=== PATIENT | female | born 1940 | race Caucasian/White ===

== ENCOUNTER 2016-11-21 06:33 | Day surgery (SDC) | payer MEDICARE, OTHER ==
[2016-11-16 10:53] LABS: Urine RBC None Seen /hpf (0 - 4)
[2016-11-16 10:56] LABS: Basophils # (auto) 0 uL; Basophils % (auto) 0.4 % (0.0-2.0); Eosinophils # (auto) 0.2 uL; Eosinophils % (auto) 2.6 % (0.0-7.0); Hematocrit 42.3 % (36.0-46.0); Hemoglobin 14.4 g/dL (12.2-16.2); Lymphocytes # (auto) 2.6 uL; Lymphocytes % (auto) 40.4 % (10.0-50.0); Mean Corpuscular Hemoglobin 30.4 pg (28.0-32.0); Mean Corpuscular Volume 89.3 fL (80.0-100.0); Mean Platelet Volume 7.9 fL (7.4-10.4); Monocytes # (auto) 0.5 uL; Monocytes % (auto) 7.5 % (0.0-12.0); Neutrophils # (auto) 3.1 uL; Neutrophils % (auto) 49.1 % (37.0-80.0); Platelet Count (auto) 188 10^3/uL (140-450); Red Cell Distribution Width 14.4 % (11.6-16.0); White Blood Cell 6.3 10^3/uL (4.4-10.8)
[2016-11-16 11:11] LABS: INR 0.96 (0.9-1.15); Partial Thromboplastin Time 25.6 sec (22.64-33.71); Prothrombin Time 10.5 sec (9.37-12.3)
[2016-11-16 11:21] LABS: BUN/Creatinine Ratio 25.6; Bilirubin, Total 0.3 mg/dL (0.2-1.0); Calcium 9.6 mg/dL (8.5-10.1); Potassium 4.3 mmol/L (3.5-5.1); Total Protein 7.3 g/dL (6.4-8.2)
[2016-11-16 16:22] LABS: Urine Bilirubin Negative (Negative); Urine Blood Negative /uL (Negative); Urine Color Yellow (Yellow); Urine Glucose Normal (Normal); Urine Ketone Negative (Negative); Urine Nitrite Negative (Negative); Urine Squamous Epithelial Cell FEW /hpf (<5); Urine Urobilinogen Normal (Negative); Urine pH 6.5 (5.0-8.0)
[~2016-11-21] VITALS: Ht 160 cm; Wt 81.6 kg
[~2016-11-21 06:33] MED LIST: ASCO500C49 PO; BIOT300T2 PO; CHRO1000 PO; COEN100C2 PO; CYAN250L PO; GABA-339 PO; LEVO500C2 PO; LEVO75TA50 PO; MAGNTAB OR; METF-370 PO; VITA400T4 PO; [UNRECOGNIZED DRUG - CODE] PO; [UNRECOGNIZED DRUG - CODE] PO
[2016-11-21] MEDS ORDERED: ceFAZolin 1GM VL ONE (06:34)
[2016-11-21] MEDS ORDERED: BUPIVACAINE 0.75% INJ 10ML MPV SDV IJ ONE (06:34)
[2016-11-21] MEDS ORDERED: ROPIVACAINE 0.5% (5MG/ML) 20ML AMPULE IJ ONE (06:34)
[2016-11-21] MEDS ORDERED: NEOMYCIN-BACITRACIN-POLYM 15GM TOP OINT TOP ONE (06:34)
[2016-11-21] MEDS ORDERED: methylPREDNISolone ACETATE 80 MG/ML VL ONE (06:34)
[2016-11-21] MEDS ORDERED: SODIUM CHLORIDE LOCK 20 ML ONE (07:05)
[2016-11-21] MEDS ORDERED: MIDAZOLAM HCL 1MG/1ML-2 ML VIAL ONE (07:05)
[2016-11-21] MEDS ORDERED: PROPOFOL 10 MG/ML 20 ML IV ONE (07:05)
[2016-11-21] MEDS ORDERED: fentaNYL CITRATE 100 MCG/2 ML VL ONE (07:05)
[2016-11-21] MEDS ORDERED: ONDANSETRON HCL 4 MG/2 ML VIAL ONE (07:05)
[2016-11-21] MEDS ORDERED: ceFAZolin 1GM/50ML D5W 50 ML IV ONE (07:13)
[2016-11-21] MEDS ORDERED: METOCLOPRAMIDE HCL 5MG/ml INJ 2ml VIAL IV ONE (08:00)
[2016-11-21] MEDS ORDERED: KETOROLAC TROMETH 30 MG/ML 1ML VIAL IV ONE (08:00)
[2016-11-21 09:06] VITALS: BP 119/76
== END 2016-11-21 09:16 | disposition home or self-care (01) ==
LOC: SUR 06:33
PROVIDERS: ATTEND Podiatrist Foot & Ankle Surgery
DX: T84.84XA Pain due to internal orthopedic prosthetic devices, implants and grafts, initial encounter (principal); L90.5 Scar conditions and fibrosis of skin; Z88.6 Allergy status to analgesic agent; J45.909 Unspecified asthma, uncomplicated; E11.9 Type 2 diabetes mellitus without complications
CPT/HCPCS: 14040; 20680; 36415; 80053; 81001; 82962; 85025; 85610; 85730; 88300; 88304; J0690; J2250; J2405; J2704; J3490; J7030; L3260

== ENCOUNTER → 2017-07-03 | Day surgery (SDC) | payer MEDICARE, OTHER ==
[2017-07-02 12:52] LABS: Basophils # (auto) 0.1 uL; Basophils % (auto) 0.7 % (0.0-2.0); Eosinophils # (auto) 0.1 uL; Eosinophils % (auto) 1.1 % (0.0-7.0); Hematocrit 44.3 % (36.0-46.0); Hemoglobin 14.7 g/dL (12.2-16.2); Lymphocytes # (auto) 2.2 uL; Lymphocytes % (auto) 31.8 % (10.0-50.0); Mean Corpuscular Hemoglobin 29.6 pg (28.0-32.0); Mean Corpuscular Hgb Conc. 33.1 g/dL (32.0-36.0); Mean Corpuscular Volume 89.6 fL (80.0-100.0); Monocytes # (auto) 0.6 uL; Monocytes % (auto) 7.9 % (0.0-12.0); Neutrophils # (auto) 4.1 uL; Neutrophils % (auto) 58.5 % (37.0-80.0); Nucleated Red Blood Cells % 0.1 %; Platelet Count (auto) 191 10^3/uL (140-450); Red Blood Cells 4.95 10^6/uL (4.0-5.20); Red Cell Distribution Width 14.5 % (11.8-14.3); White Blood Cell 7.1 10^3/uL (4.4-10.8)
[2017-07-02 12:55] LABS: Urine Bacteria FEW /hpf (None Seen); Urine Blood Negative /uL (Negative); Urine Specific Gravity 1.023 (1.001-1.035); Urine WBC 2 /hpf (0 - 5)
[2017-07-02 13:11] LABS: INR 0.95 (0.9-1.15); Partial Thromboplastin Time 25.4 sec (22.64-33.71); Prothrombin Time 10.4 sec (9.37-12.3)
[2017-07-02 13:18] LABS: Albumin 3.8 g/dL (3.4-5.0); BUN/Creatinine Ratio 24.7; Bilirubin, Total 0.4 mg/dL (0.2-1.0); Calcium 9.6 mg/dL (8.5-10.1); Potassium 4.3 mmol/L (3.5-5.1); Total Protein 7.1 g/dL (6.4-8.2)
[~2017-07-03] VITALS: Ht 160 cm; Wt 79.4 kg
[~2017-07-03] MED LIST changes: +DEXAMETHASONE SOD PHOS 10MG/1ML VIAL INJ ONE; +KETOROLAC TROMETH 30 MG/ML 1ML VIAL IV ONE; +LABETALOL HCL 5 MG/ML 4ML SYRINGE IV PRN; +MEPERIDINE HCL (50 MG/ML) 1 ML VIAL ONE; +MIDAZOLAM HCL 1MG/1ML-2 ML VIAL IV PRN; +MIDAZOLAM HCL 1MG/1ML-2 ML VIAL ONE; +MORPHINE SULFATE 8mg/ml INJ SDV IV ONE; +MORPHINE SULFATE 8mg/ml INJ SDV IV PRN; +ONDANSETRON HCL 4 MG/2 ML VIAL IV ONE; +PROPOFOL 10 MG/ML 20 ML IV ONE; -VITA400T4 PO; +ceFAZolin 1GM/50ML 50 ML IV ONE; +ePHEDrine SULFATE 50 MG/ML AMP IV PRN; +fentaNYL CITRATE 100 MCG/2 ML VL IV ONE; +fentaNYL CITRATE 100 MCG/2 ML VL ONE; +methylPREDNISolone ACETATE 80 MG/ML VL ONE
[2017-07-03 16:28] VITALS: BP 112/69
== END ==
LOC: SUR 09:57
PROVIDERS: ATTEND Podiatrist Foot & Ankle Surgery
DX: G57.62 Lesion of plantar nerve, left lower limb (principal); Z88.5 Allergy status to narcotic agent; Z88.1 Allergy status to other antibiotic agents; Z88.2 Allergy status to sulfonamides; J45.909 Unspecified asthma, uncomplicated; E66.9 Obesity, unspecified; Z68.31 Body mass index [BMI] 31.0-31.9, adult; E11.9 Type 2 diabetes mellitus without complications; E03.9 Hypothyroidism, unspecified; K21.9 Gastro-esophageal reflux disease without esophagitis; G47.33 Obstructive sleep apnea (adult) (pediatric)
CPT/HCPCS: 36415; 64704; 80053; 81001; 82962; 85025; 85610; 85730; J0690; J1040; J1100; J2175; J2250; J2704; J3010; L3260

== ENCOUNTER 2022-01-26 20:42 | Emergency (ER) | payer MEDICARE, OTHER ==
[~2022-01-26] VITALS: Ht 162.6 cm; Wt 160.0 kg
[~2022-01-26 20:42] MED LIST changes: -BIOT300T2 PO; +BIOT300T5 PO; -COEN100C2 PO; +COEN1CAP8 PO; -DEXAMETHASONE SOD PHOS 10MG/1ML VIAL INJ ONE; -KETOROLAC TROMETH 30 MG/ML 1ML VIAL IV ONE; -LABETALOL HCL 5 MG/ML 4ML SYRINGE IV PRN; +LEV75T PO; -LEVO75TA50 PO; -MEPERIDINE HCL (50 MG/ML) 1 ML VIAL ONE; -MIDAZOLAM HCL 1MG/1ML-2 ML VIAL IV PRN; -MIDAZOLAM HCL 1MG/1ML-2 ML VIAL ONE; -MORPHINE SULFATE 8mg/ml INJ SDV IV ONE; -MORPHINE SULFATE 8mg/ml INJ SDV IV PRN; -ONDANSETRON HCL 4 MG/2 ML VIAL IV ONE; -PROPOFOL 10 MG/ML 20 ML IV ONE; -ceFAZolin 1GM/50ML 50 ML IV ONE; -ePHEDrine SULFATE 50 MG/ML AMP IV PRN; -fentaNYL CITRATE 100 MCG/2 ML VL IV ONE; -fentaNYL CITRATE 100 MCG/2 ML VL ONE; -methylPREDNISolone ACETATE 80 MG/ML VL ONE
[2022-01-26 23:55] VITALS: BP 154/57
== END 2022-01-27 00:11 | disposition left against medical advice (07) ==
LOC: ER 20:42
DX: M25.552 Pain in left hip (principal); E11.9 Type 2 diabetes mellitus without complications; R42 Dizziness and giddiness; Z88.6 Allergy status to analgesic agent; Z88.2 Allergy status to sulfonamides; W01.0XXA Fall on same level from slipping, tripping and stumbling without subsequent striking against object, initial encounter; Y93.89 Activity, other specified; Y92.89 Other specified places as the place of occurrence of the external cause; Y99.8 Other external cause status
CPT/HCPCS: 73502; 93005

== ENCOUNTER 2024-12-29 06:54 | Day surgery (SDC) | payer MEDICARE, OTHER ==
[~2024-12-29] VITALS: Ht 160 cm; Wt 76.2 kg
[2024-12-29] VITALS (7 sets, daily range): BP systolic 107–126; BP diastolic 57–69; PULSE 75–82; RESP 11–17; TEMP 98.1; O2SAT 92–96
[~2024-12-29 06:54] MED LIST changes: +ALPH150C PO; +ALPH600C2 PO; -ASCO500C49 PO; -BIOT300T5 PO; -CHRO1000 PO; +CLOP75TA28 PO; -CYAN250L PO; +ESCI1TAB36 PO; +FLUT250M2 INH; +FURO20TA3 PO; -LEV75T PO; +LEVO100T8 PO; -LEVO500C2 PO; +MAGN400T40 PO; +MONT-8 PO; +MULT-688 PO; +OMEG-89 PO; +RANO10003 PO; +ROSU20TA14 PO; +TURM1TAB PO; -[UNRECOGNIZED DRUG - CODE] PO; -[UNRECOGNIZED DRUG - CODE] PO
[2024-12-29] MEDS: IODIXANOL 320MG/ML 100ML BTL IV ONE (09:01)
[2024-12-29] MEDS: ANGIOMAX 250 MG VIAL IV ONE (09:05)
[2024-12-29] MEDS: VERAPAMIL 2.5MG/ML INJ 2ML VIAL IV ONE (09:05)
[2024-12-29] MEDS: SODIUM CHL 0.9% 0 ML ONE (09:05)
[2024-12-29] MEDS: fentaNYL CITRATE 100 MCG/2 ML VL ONE (09:05)
[2024-12-29] MEDS: HEPARIN SODIUM (PORCINE) 5000 UNITS/ML 1ML VIAL ONE (09:05)
[2024-12-29] MEDS: MIDAZOLAM HCL 2MG/2ML 2ml VIAL (1mg/ml) ONE (09:05)
[2024-12-29] MEDS: LIDOCAINE 2%HCL (LOCAL ANESTH.) INJ 20ML MDV ONE (09:06)
--- NOTE | 2024-12-29 10:04 | DVHOP2 ---
Operative Report Procedures performed: Left heart catheterization and bilateral coronary angiogram FFR of LAD Moderate sedation Diagnosis: Nonobstructive coronary artery disease (patent stent in proximal to mid LAD). Up to 60% lesion/plaque in proximal LAD with negative FFR. Mid RCA with 50% focal lesion. LVEF of 55% Cardiac suggestion for management: Optimized medical therapy Lifestyle and risk factor modifications Findings: LVEF: 55% LVEDP: 12 mm Hg There was no transaortic valve pressure gradient Left main: Left main was coming off the left sinus of Valsalva. It was free of disease. LAD: LAD was coming off the left main. There was no medium/large-sized diagonals. There was a patent stent (up to 20% in-stent stenosis) in proximal to mid LAD. There was a focal 60% lesion in proximal LAD (prior to the stent). Other portions of LAD had mild disease. FFR of the proximal LAD lesion was negative for significant hemodynamic lesion (result was 0.9) LCX: LCX was coming off the left main. It was a large caliber vessel. OM1 and OM2 were medium-sized calories. OM3 was a large caliber vessel. LCX throughout its course and branches revealed mild disease. RCA: RCA was coming off the right sinus of Valsalva. It was a dominant vessel and provided RPDA/RPLS. Mid RCA had focal 50% lesion. Other portions of RCA throughout its course and branches revealed mild disease. Presentation: Patient is a 84-year-old female who presented to the office for repeated chest discomfort. She even has presented to the hospital for chest pains. Does have history of coronary artery disease and has had stent in LAD in 2019. Other comorbidities includes diabetes mellitus, hyperlipidemia, DJD, COPD on home oxygen, spinal stenosis, obesity, hypothyroidism, gallstones, fatty liver and neuropathy. Was on multi antianginal therapy. Echocardiogram of April 2024 revealed ejection fraction of 55-60% with no wall motion abnormality and mild MR/TR and right ventricular systolic pressure of less than 35 mm Hg. Nuclear stress test of May 2024 was nonrevealing. Secondary to repeated chest discomforts and non-responding to medical therapy, the patient was sent for cardiac catheterization. Procedure: After obtaining informed consent, the patient was brought to the quality assurance qa lab analyst. She was prepped and draped in sterile fashion. Right radial artery was used for access site. 1 mg of Versed and 25 mcg of fentanyl were used for moderate sedation. Using Seldinger technique, the right radial artery was a ccessed and a 6 [place] slender sheath was inserted into it. 2.5 mg of verapamil and 100 mcg of nitroglycerin for given as a cocktail into the right radial sheath. 4000 units of heparin was given peripherally. A 5 [place] tiger 4 diagnostic catheter was used to perform left heart catheterization (obtaining pressures and performing left ventriculography) and bilateral coronary mina ography. We did recognize the disease in proximal LAD (prior to the stent). Decision was made to proceed with performing FFR. Cathworks FFR was performed and the result was 0.9 which was pointing to hemodynamic nonsignificant lesion. Decision was made to manage it medically. Total bleeding was less than 5 mL. There was no dissection/hematoma/perforation. Patient tolerated the procedure with no complication. Right radial artery access site was managed by deploying a TR band. Fluoroscopy time: 4.0 minutes contrast: 40 mL of KirbyipaJOSE Meyer MD Dec 29, 2024 10:04
== END 2024-12-29 12:20 | disposition home or self-care (01) ==
LOC: CATH 06:54
PROVIDERS: ATTEND Internal Medicine Cardiovascular Disease
DX: I25.10 Atherosclerotic heart disease of native coronary artery without angina pectoris (principal); J44.9 Chronic obstructive pulmonary disease, unspecified; K76.0 Fatty (change of) liver, not elsewhere classified; E78.5 Hyperlipidemia, unspecified; E66.9 Obesity, unspecified; E11.40 Type 2 diabetes mellitus with diabetic neuropathy, unspecified; M19.90 Unspecified osteoarthritis, unspecified site; M48.00 Spinal stenosis, site unspecified; E03.9 Hypothyroidism, unspecified; I10 Essential (primary) hypertension; Z79.899 Other long term (current) drug therapy; Z99.81 Dependence on supplemental oxygen; Z95.5 Presence of coronary angioplasty implant and graft; Z98.890 Other specified postprocedural states
CPT/HCPCS: 0523T; 93458; C1894; J1644; J2250; J3010; J7030; Q9967; 99152